=== PATIENT | male | born 1970 | race Caucasian/White ===

== ENCOUNTER 2016-11-21 07:20 | Outpatient (CLI) | payer OTHER | END 2016-11-21 07:21 | disposition home or self-care (01) | DX: Z12.5 Encounter for screening for malignant neoplasm of prostate (principal); I10 Essential (primary) hypertension; I48.0 Paroxysmal atrial fibrillation; R53.83 Other fatigue ==

== ENCOUNTER 2017-03-06 17:34 | Emergency (ER) | payer OTHER ==
--- NOTE | 2017-03-06 18:02 | ED Physician Documentation ---
PD HPI CHEST PAIN - Stated complaint Stated Complaint: CP - Chief complaint Chief Complaint: Cardiac - History obtained from History obtained from: Patient, Family - History of Present Illness Timing - onset: How many hours ago (2) Timing - onset during: Light activity Timing - duration: Hours (2) Timing - details: Constant Pain level max: 6 Pain level now: 2 Quality: Tightness Location: Other (entire chest) Radiation: Other (non-radiating) Improved by: ASA Associated symptoms: No: Shortness of air, Diaphoresis, Nausea, Vomiting, Feeling faint / dizzy, General Weakness, Palpitations, Cough Similar symptoms before: Diagnosis (chest pain, states normal coronary angio 4 years ago at [facility] in [place]. Had new afib at that time.) Recently seen: Not recently seen Review of Systems Ten Systems: 10 systems reviewed and negative Constitutional: denies: Fever, Chills Nose: denies: Rhinorrhea / runny nose, Congestion Cardiac: denies: Palpitations Respiratory: denies: Cough GI: denies: Abdominal Pain, Nausea, Vomiting, Diarrhea Skin: denies: Rash Musculoskeletal: denies: Neck pain, Back pain Neurologic: denies: Focal weakness, Numbness, Headache PD PAST MEDICAL HISTORY - Past Medical History Past Medical History: Yes Cardiovascular: Atrial fibrillation - Past Surgical History Past Surgical History: Yes Cardiovascular: Other - Present Medications Home Medications: Ambulatory Orders Medication Instructions Recorded Confirmed Aspirin 81 mg PO DAILY 10/12/15 03/06/17 Nifedipine 10 mg PO DAILY 10/12/15 03/06/17 Esomeprazole Magnesium [Nexium] 20 mg PO DAILY 03/06/17 03/06/17 Lisinopril 5 mg PO DAILY 03/06/17 03/06/17 - Allergies Allergies/Adverse Reactions: Allergies Allergy/AdvReac Type Severity Reaction Status Date / Time No Known Drug Allergies Allergy Verified 03/06/17 17:43 - Social History Does the pt smoke?: No Smoking Status: Never smoker Does the pt drink ETOH?: Yes Does the pt have substance abuse?: No - Immunizations Immunizations are current?: Yes PD ED PE NORMAL - Vitals Vital signs reviewed: Yes - General General: Alert and oriented X 3, No acute distress, Well developed/nourished - HEENT HEENT: PERRL, Moist mucous membranes - Neck Neck: Supple, no meningeal sign - Cardiac Cardiac: RRR, No murmur, Strong equal pulses - Respiratory Respiratory: No respiratory distress, Clear bilaterally - Abdomen Abdomen: Soft, Non tender, Non distended - Derm Derm: Warm and dry - Extremities Extremities: No edema, No calf tenderness / cord - Neuro Neuro: Alert and oriented X 3 - Psych Psych: Normal mood, Normal affect Results - Vitals Vitals: Vital Signs - 24 hr 03/06/17 03/06/17 03/06/17 17:35 17:54 19:07 Temperature 36.9 C Heart Rate 75 66 Respiratory 17 18 Rate Blood Pressure 144/75 H 137/90 H Blood Pressure 137/99 H [Left] Blood Pressure 144/75 H [Right] O2 Saturation 98 98 03/06/17 03/06/17 20:13 21:34 Temperature Heart Rate 66 56 L Respiratory 18 18 Rate Blood Pressure 141/87 H 126/66 Blood Pressure [Left] Blood Pressure [Right] O2 Saturation 97 97 Oxygen O2 Source Room air - EKG (time done) 1743 Rate: Rate (enter#) (74) Rhythm: NSR [place]: LAD Intervals: Normal MT QRS: Normal Ischemia: ST elevation c/w repol - Labs Labs: Laboratory Tests 03/06/17 03/06/17 03/06/17 17:50 17:50 17:50 WBC 5.5 RBC 4.72 Hgb 15.2 Hct 44.5 MCV 94.3 H MCH 32.1 H MCHC 34.1 RDW 12.5 Plt Count 144 MPV 11.2 Neut # 2.8 Lymph # 2.0 Mcnairy # 0.5 Eos # 0.2 Baso # 0.0 Absolute Nucleated RBC 0.00 Nucleated RBCs 0.0 Sodium 143 Potassium 4.0 Chloride 107 Carbon Dioxide 29 Anion Gap 7.0 BUN 18 Creatinine 0.9 Estimated GFR (MDRD) 91 Glucose 93 Calcium 9.1 Total Bilirubin 0.7 AST 33 ALT 60 Alkaline Phosphatase 66 Troponin I < 0.04 Total Protein 7.4 Albumin 4.6 Globulin 2.8 Albumin/Globulin Ratio 1.6 Lipase 36 03/06/17 20:11 WBC RBC Hgb Hct MCV MCH MCHC RDW Plt Count MPV Neut # Lymph # Mcnairy # Eos # Baso # Absolute Nucleated RBC Nucleated RBCs Sodium Potassium Chloride Carbon Dioxide Anion Gap BUN Creatinine Estimated GFR (MDRD) Glucose Calcium Total Bilirubin AST ALT Alkaline Phosphatase Troponin I < 0.04 Total Protein Albumin Globulin Albumin/Globulin Ratio Lipase - Rads (name of study) cxr Radiology: Prelim report reviewed, EMP read contemporaneously, See rad report ( normal) PD MEDICAL DECISION MAKING - ED course Complexity details: reviewed results, re-evaluated patient, considered differential (No ST elevation MT, no aortic dissection, no PE, no tension pneumothorax, no aortic aneurysm), d/w patient, d/w family ED course: Patient is a 46-year-old gentleman with chest pain for several hours prior to arrival today. No acute findings on EKG. Negative coronary angiogram 4 years ago. No acute troponin elevation. Normal chest x-ray. Heart score is 3. We did discuss observation in the hospital for serial cardiac enzymes, he declines this. A second troponin was ordered without any change. His symptoms have resolved. We will have him follow-up with his doctor for further evaluation and care as an outpatient including a repeat cardiac stress test. He does understand that he has approximately a 2% risk of major adverse cardiac event in the next 6 weeks. Patient and are comfortable with this. Patient and family counseled regarding signs and symptoms for which I believe and urgent re- evaluation would be necessary. Patient with good understanding of and agreement to plan and is comfortable going home at this time This document was made in part using voice recognition software. While efforts are made to proofread this document, sound alike and grammatical errors may occur. Departure - Departure Disposition: 01 Home, Self Care Clinical Impression: Chest pain Qualifiers: Chest pain type: unspecified Qualified Code(s): R07.9 - Chest pain, unspecified Condition: Good Instructions: ED Chest Pain Atypical Unkn Cause Follow-Up: Tiana Plaza PA-C [Primary Care Provider] - Within 3 Days Comments: Return if you worsen. Continue your aspirin daily. You need to follow-up with your doctor for a repeat cardiac stress test. Discharge Date/Time: 03/06/17 22:05
[2017-03-06 18:07] LABS: BASOPHILS % (AUTO) 0.8 %; EOSINOPHILS # (AUTO) 0.2 10^3/uL (0.0-0.7); EOSINOPHILS % (AUTO) 3.6 %; HCT - HEMATOCRIT 44.5 % (42.0-52.0); HGB - HEMOGLOBIN 15.2 g/dL (14.0-18.0); LYMPHOCYTES % (AUTO) 36.4 %; MEAN CORPUSCULAR HEMOGLOBIN 32.1 pg (27.0-31.0); MEAN CORPUSCULAR HGB CONC 34.1 g/dL (32.0-36.0); MEAN CORPUSCULAR VOLUME 94.3 fL (80.0-94.0); MEAN PLATELET VOLUME 11.2 fL (7.4-11.4); MONOCYTES # (AUTO) 0.5 10^3/uL (0.0-1.0); NEUTROPHILS # (AUTO) 2.8 10^3/uL (1.5-6.6); NEUTROPHILS % (AUTO) 50.2 %; RED BLOOD COUNT 4.72 10^6/uL (4.70-6.10); RED CELL DISTRIBUTION WIDTH 12.5 % (12.0-15.0); UNCORRECTED WHITE BLOOD COUNT 5.5 x10^3/uL; WHITE BLOOD COUNT 5.5 x10^3/uL (4.8-10.8)
[2017-03-06 18:12] LABS: ALBUMIN/GLOBULIN RATIO 1.6 (1.0-2.2); BILIRUBIN,TOTAL 0.7 mg/dL (0.2-1.0); CALCIUM 9.1 mg/dL (8.5-10.3); CREATININE 0.9 mg/dL (0.6-1.2); TOTAL PROTEIN 7.4 g/dL (6.7-8.2)
[2017-03-06] MEDS ORDERED: ASPIRIN CHEW 81 MG TABLET PO STA (19:10)
[2017-03-06] MEDS ORDERED: ASPIRIN CHEW 81 MG TABLET ONE (19:11)
--- NOTE | 2017-03-06 19:11 | XRAY Preliminary Report ---
Exam: XR Chest 1 View IMPRESSION: Normal single view chest. [facility] SITE ID: [id number]
--- NOTE | 2017-03-06 19:23 | XRAY Report ---
EXAM: CHEST RADIOGRAPHY EXAM DATE: 03/06/2017 06:05 PM. CLINICAL HISTORY: Chest pain. COMPARISON: 06/02/2013. TECHNIQUE: 1 view. FINDINGS: Lungs/Pleura: No focal opacities evident. No pleural effusion. No pneumothorax. Mediastinum: Within exam limitations, cardiomediastinal contour is normal. Other: None. IMPRESSION: Normal single view chest. [facility] Referring Provider Line: [phone] SITE ID: [id number]
[2017-03-06 21:35] VITALS: BP 126/66
== END 2017-03-06 22:05 | disposition home or self-care (01) ==
LOC: ED 17:34
DX: R07.89 Other chest pain (principal); Z79.82 Long term (current) use of aspirin
CPT/HCPCS: 36415; 71010; 80053; 83690; 84484; 85025; 93005; 93010; 99284; A9270

== ENCOUNTER 2017-05-08 11:35 | Day surgery (SDC) | payer OTHER ==
[2017-05-08] MEDS ORDERED: LACTATED RINGERS 1,000 ML IV ONE (12:00)
[2017-05-08] MEDS ORDERED: fentaNYL 100 MCG/2 ML VIAL IVP ONE (14:10)
[2017-05-08] MEDS ORDERED: MIDAZOLAM 2 MG/2 ML VIAL IVP ONE (14:10)
[2017-05-08] MEDS ORDERED: BENZOCAINE/TETRACAINE/BUTAMBEN SPRAY 56 GM TOP ONE (14:17)
[2017-05-08 15:21] VITALS: BP 118/68
== END 2017-05-08 11:36 | disposition home or self-care (01) ==
LOC: SDS 11:35
PROVIDERS: ATTEND Surgery
PROC: 0DB78ZX Excision of Stomach, Pylorus, Via Natural or Artificial Opening Endoscopic, Diagnostic (ICD-10-PCS; 2017-05-08)
PROC: 0DB48ZX Excision of Esophagogastric Junction, Via Natural or Artificial Opening Endoscopic, Diagnostic (ICD-10-PCS; principal; 2017-05-08 12:45)
DX: K21.9 Gastro-esophageal reflux disease without esophagitis (principal); K44.9 Diaphragmatic hernia without obstruction or gangrene; I10 Essential (primary) hypertension; I48.91 Unspecified atrial fibrillation; G47.33 Obstructive sleep apnea (adult) (pediatric); Z87.891 Personal history of nicotine dependence; E66.3 Overweight; Z79.82 Long term (current) use of aspirin; Z68.30 Body mass index [BMI] 30.0-30.9, adult
CPT/HCPCS: 43239; A9270; J7120; 88305

== ENCOUNTER → 2018-08-14 | Outpatient (CLI) | payer OTHER ==
[2018-08-14 13:00] LABS: BASOPHILS % (AUTO) 0.9 %; EOSINOPHILS # (AUTO) 0.2 10^3/uL (0.0-0.7); EOSINOPHILS % (AUTO) 3.7 %; LYMPHOCYTES # (AUTO) 1.8 10^3/uL (1.5-3.5); LYMPHOCYTES % (AUTO) 33.7 %; MEAN CORPUSCULAR HEMOGLOBIN 33.9 pg (27.0-31.0); MEAN CORPUSCULAR HGB CONC 35.5 g/dL (32.0-36.0); MEAN CORPUSCULAR VOLUME 95.5 fL (80.0-94.0); MEAN PLATELET VOLUME 11.1 fL (7.4-11.4); MONOCYTES # (AUTO) 0.4 10^3/uL (0.0-1.0); MONOCYTES % (AUTO) 8.4 %; NEUTROPHILS # (AUTO) 2.8 10^3/uL (1.5-6.6); NEUTROPHILS % (AUTO) 53.3 %; PLT - PLATELET COUNT 159 10^3/uL (130-450); RED BLOOD COUNT 4.73 10^6/uL (4.70-6.10); RED CELL DISTRIBUTION WIDTH 12.4 % (12.0-15.0); WHITE BLOOD COUNT 5.3 x10^3/uL (4.8-10.8)
[2018-08-14 13:10] LABS: ALBUMIN 4.3 g/dL (3.2-5.5); ALBUMIN/GLOBULIN RATIO 1.6 (1.0-2.2); ALKALINE PHOSPHATASE 75 IU/L (42-121); ALT ALANINE AMINOTRANSFERASE 69 IU/L (10-60); AST ASPARTATE AMINOTRANSFERASE 35 IU/L (10-42); BILIRUBIN,TOTAL 1.5 mg/dL (0.2-1.0); BUN - BLOOD UREA NITROGEN 18 mg/dL (6-20); CARBON DIOXIDE - CO2 25 mmol/L (21-32); CHLORIDE 104 mmol/L (101-111); CHOL/HDL RATIO 5.2 (<5.0); CHOLESTEROL 172 mg/dL; CREATININE 0.8 mg/dL (0.6-1.2); GFR - MDRD 104 (>89); GLUCOSE 96 mg/dL (70-100); HDL CHOLESTEROL 33 mg/dL; LDL CHOLESTEROL,CALCULATED 95 mg/dL; LDL/HDL RATIO 2.9 (<3.6); SODIUM 138 mmol/L (135-145); VLDL CHOLESTEROL 44 mg/dL
[2018-08-14 14:12] LABS: HEMOGLOBIN A1C 0.58 g/dL; HEMOGLOBIN A1C % 5.3 % (4.6-6.2)
== END ==
LOC: LAB.WCP 07:22
PROVIDERS: ATTEND Physician Assistant
DX: Z00.00 Encounter for general adult medical examination without abnormal findings (principal); Z79.899 Other long term (current) drug therapy
CPT/HCPCS: 36415; 80053; 80061; 83036; 83721; 84443; 85025

== ENCOUNTER 2020-03-18 06:07 | Emergency (ER) | payer OTHER ==
[2020-03-18 06:14] VITALS: BP 127/94
[2020-03-18] MEDS ORDERED: PROPARACAINE 0.5% OPHTH DROPS 15 ML LEFTEYE STA (06:40)
--- NOTE | 2020-03-18 06:46 | ED Physician Documentation ---
PD HPI OPHTHO - Stated complaint Stated Complaint: L EYE PX - Chief complaint Chief Complaint: Heent - History obtained from History obtained from: Patient - History of Present Illness Timing - onset: Enter time (02:00), Today Timing - details: Abrupt onset Location: Left Quality / character: Other (FB sensation) Associated symptoms: FB sensation. No: Redness, Swelling, Tearing, Discharge, M atting, Photophobia, Double vision, Decreased vision, Loss of vision, Headache Contributing factors: Irrigated [employer], Wears glasses. 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 no injury and does not recall incident of FB getting into the eye. Review of Systems Eyes: reports: Irritation, Other (left eye FB sensation). denies: Loss of vision, Decreased vision, Photophobia, Discharge PD PAST MEDICAL HISTORY - Past Medical History Past Medical History: Yes Cardiovascular: Hypertension, Atrial fibrillation Respiratory: None, Sleep apnea, CPAP use, Other Neuro: None Endocrine/Autoimmune: None GI: GERD : None HEENT: None Psych: None Musculoskeletal: None Derm: None - Past Surgical History Past Surgical History: Yes Cardiovascular: Other - Present Medications Home Medications: Ambulatory Orders Medication Instructions Recorded Confirmed Aspirin 81 mg PO DAILY 10/12/15 05/07/17 NIFEdipine [Nifedipine] 10 mg PO DAILY 10/12/15 05/07/17 Esomeprazole Magnesium [Nexium] 20 mg PO DAILY 03/06/17 05/07/17 lisinopriL [Lisinopril] 10 mg PO DAILY 03/06/17 05/07/17 - Allergies Allergies/Adverse Reactions: Allergies Allergy/AdvReac Type Severity Reaction Status Date / Time No Known Drug Allergies Allergy Verified 03/18/20 06:14 - Social History Does the pt smoke?: No Smoking Status: Never smoker Does the pt drink ETOH?: Yes Does the pt have substance abuse?: No - Immunizations Immunizations are current?: Yes - POLST Patient has POLST: No PD ED PE NORMAL - Vitals Vital signs reviewed: Yes - General General: Alert and oriented X 3, No acute distress, Well developed/nourished - HEENT HEENT: SRINI DURAN PD ED PE EXPANDED - HEENT HEENT Visual: 1 - deformity (small, shallow fluorescein uptake) - Eyes Eyes: Normal eyelids, No eyelid FB (everted), Fluorescein uptake, Anterior chambers clear. No: Eyelid swelling, Eyelid erythema, Exudate, Conj/sclera FB, Subconj hemorrhage, Corneal FB, Corneal abrasion, Corneal ulcer Results - Vitals Vitals: Vital Signs - 24 hr 03/18/20 06:12 Temperature 36.5 C Heart Rate 76 Respiratory 17 Rate Blood Pressure 127/94 H O2 Saturation 97 Oxygen O2 Source Room air PD MEDICAL DECISION MAKING - ED course Complexity details: considered differential, d/w patient Departure - Departure Disposition: 01 Home, Self Care Clinical Impression: Corneal abrasion Condition: Good Instructions: ED Eye Injury Corneal Abrasion Follow-Up: Cordelia Doe PA [Primary Care Provider] - Comments: Use the antibiotic drops as follows: 1 drop in left eye 4 times per day for 5 days Discharge Date/Time: 03/18/20 07:32
[2020-03-18] MEDS ORDERED: POLYMYXIN B/TRIMETH OPHTH DROPS LEFTEYE STA (07:25)
== END 2020-03-18 07:32 | disposition home or self-care (01) ==
LOC: ED 06:07
DX: S05.02XA Injury of conjunctiva and corneal abrasion without foreign body, left eye, initial encounter (principal); X58.XXXA Exposure to other specified factors, initial encounter; I10 Essential (primary) hypertension
CPT/HCPCS: 99282; 99283; A9270; J3490

== ENCOUNTER 2020-10-10 07:45 | Outpatient (CLI) | payer OTHER ==
[2020-10-10 12:48] LABS: BASOPHILS % (AUTO) 0.9 %; EOSINOPHILS # (AUTO) 0.2 10^3/uL (0.0-0.7); EOSINOPHILS % (AUTO) 3.5 %; HGB - HEMOGLOBIN 16.3 g/dL (14.0-18.0); LYMPHOCYTES # (AUTO) 1.4 10^3/uL (1.5-3.5); LYMPHOCYTES % (AUTO) 32.9 %; MEAN CORPUSCULAR HEMOGLOBIN 33.1 pg (27.0-31.0); MEAN CORPUSCULAR HGB CONC 33.7 g/dL (32.0-36.0); MEAN CORPUSCULAR VOLUME 98.2 fL (80.0-94.0); MONOCYTES # (AUTO) 0.5 10^3/uL (0.0-1.0); MONOCYTES % (AUTO) 10.4 %; NEUTROPHILS # (AUTO) 2.2 10^3/uL (1.5-6.6); NEUTROPHILS % (AUTO) 51.6 %; PLT - PLATELET COUNT 160 10^3/uL (130-450); RED BLOOD COUNT 4.92 10^6/uL (4.70-6.10); RED CELL DISTRIBUTION WIDTH 11.7 % (12.0-15.0); WHITE BLOOD COUNT 4.3 x10^3/uL (4.8-10.8)
[2020-10-10 13:56] LABS: ALBUMIN 4.2 g/dL (3.2-5.5); ALBUMIN/GLOBULIN RATIO 1.3 (1.0-2.2); ALKALINE PHOSPHATASE 67 IU/L (42-121); ALT ALANINE AMINOTRANSFERASE 63 IU/L (10-60); AST ASPARTATE AMINOTRANSFERASE 32 IU/L (10-42); BILIRUBIN,TOTAL 0.9 mg/dL (0.2-1.0); BUN - BLOOD UREA NITROGEN 18 mg/dL (6-20); CALCIUM 9.7 mg/dL (8.5-10.3); CARBON DIOXIDE - CO2 26 mmol/L (21-32); CHLORIDE 105 mmol/L (101-111); CHOL/HDL RATIO 5.4 (<5.0); CHOLESTEROL 204 mg/dL; CREATININE 0.9 mg/dL (0.6-1.2); GLUCOSE 110 mg/dL (70-100); HDL CHOLESTEROL 38 mg/dL; LDL CHOLESTEROL,CALCULATED 114 mg/dL; SODIUM 141 mmol/L (135-145); TOTAL PROTEIN 7.5 g/dL (6.7-8.2); VLDL CHOLESTEROL 52 mg/dL
[2020-10-10 14:08] LABS: HEMOGLOBIN A1c% 5.2 % (4.27-6.07)
== END 2020-10-10 23:59 | disposition home or self-care (01) ==
LOC: LAB.WCP 07:45
PROVIDERS: ATTEND Physician Assistant
DX: Z00.00 Encounter for general adult medical examination without abnormal findings (principal); Z79.899 Other long term (current) drug therapy
CPT/HCPCS: 36415; 80053; 80061; 83036; 83721; 84443; 85025

== ENCOUNTER 2021-12-07 08:45 | Outpatient (CLI) | payer OTHER ==
[2021-12-07 13:27] LABS: ALBUMIN 4.3 g/dL (3.2-5.5); ALBUMIN/GLOBULIN RATIO 1.4 (1.0-2.2); ALKALINE PHOSPHATASE 55 IU/L (42-121); ALT ALANINE AMINOTRANSFERASE 59 IU/L (10-60); AST ASPARTATE AMINOTRANSFERASE 48 IU/L (10-42); BILIRUBIN,TOTAL 1.4 mg/dL (0.2-1.0); BUN - BLOOD UREA NITROGEN 17 mg/dL (6-20); CALCIUM 8.6 mg/dL (8.5-10.3); CARBON DIOXIDE - CO2 28 mmol/L (21-32); CHLORIDE 104 mmol/L (101-111); CHOL/HDL RATIO 2.7 (<5.0); CHOLESTEROL 126 mg/dL; CREATININE 0.9 mg/dL (0.6-1.2); GFR - MDRD 89 (>89); GLUCOSE 104 mg/dL (70-100); HDL CHOLESTEROL 46 mg/dL; LDL CHOLESTEROL,CALCULATED 64 mg/dL; LDL/HDL RATIO 1.4 (<3.6); POTASSIUM 4.5 mmol/L (3.5-5.0); SODIUM 138 mmol/L (135-145); TOTAL PROTEIN 7.4 g/dL (6.7-8.2); TRIGLYCERIDES 81 mg/dL; VLDL CHOLESTEROL 16 mg/dL
== END 2021-12-07 08:46 | disposition home or self-care (01) ==
LOC: LAB.N 08:45
PROVIDERS: ATTEND Physician Assistant Medical
DX: Z12.5 Encounter for screening for malignant neoplasm of prostate (principal); I25.10 Atherosclerotic heart disease of native coronary artery without angina pectoris
CPT/HCPCS: 36415; 80053; 80061; 83721; 84153

== ENCOUNTER 2022-02-08 08:02 | Outpatient (CLI) | payer BC ==
[2022-02-08 12:45] LABS: ALBUMIN 4.1 g/dL (3.2-5.5); BILIRUBIN,DIRECT 0.2 mg/dL (0.1-0.5); BILIRUBIN,TOTAL 1.2 mg/dL (0.2-1.0); TOTAL PROTEIN 7.6 g/dL (6.7-8.2)
[2022-02-09 09:27] LABS: HEPATITIS B CORE AB TOTAL NON-REACTIVE (NON-REACTIVE); HEPATITIS B SURFACE ANTIGEN NON-REACTIVE (NON-REACTIVE); HEPATITIS C ANTIBODY NON-REACTIVE (NON-REACTIVE)
[2022-02-12 08:36] LABS: HCV RNA QNT <1.18 NOT DETECTED Log IU/mL; HCV RNA QUANT RT PCR <15 NOT DETECTED IU/mL
== END 2022-02-08 08:03 | disposition home or self-care (01) ==
LOC: LAB.N 08:02
PROVIDERS: ATTEND Physician Assistant Medical
DX: R74.8 Abnormal levels of other serum enzymes (principal)
CPT/HCPCS: 36415; 80076; 86317; 86704; 86709; 86803; 87340; 87522

== ENCOUNTER 2022-02-21 07:54 | Day surgery (SDC) | payer BC ==
[2022-02-21] MEDS ORDERED: LACTATED RINGERS 1,000 ML IV ONE ×2 (08:01→09:54)
--- NOTE | 2022-02-21 08:37 | ANESTHESIA ---
Pre-Anesthesia VS, & Labs - Diagnosis screening - Procedure colonoscopy Vital Signs: Temp Pulse Resp BP Pulse Ox 36.4 C L 75 16 127/93 H 96 02/21/22 08:01 02/21/22 08:01 02/21/22 08:01 02/21/22 08:01 02/21/22 08:01 Height: 6 ft 1 in Weight (kg): 98.7 kg Body Mass Index: 28.7 BMI Classification: Overweight - NPO >8 hours - Lab Results Lab results reviewed: Yes Home Medications and Allergies Home Medications: Ambulatory Orders Lovastatin 10 mg PO DAILY 02/20/22 Aspirin 81 mg PO DAILY 10/12/15 NIFEdipine [Nifedipine] 10 mg PO DAILY 10/12/15 Esomeprazole Magnesium [Nexium] 20 mg PO DAILY 03/06/17 lisinopriL [Lisinopril] 10 mg PO DAILY 03/06/17 Lovastatin 10 mg PO DAILY 02/20/22 Allergies/Adverse Reactions: Allergies Allergy/AdvReac Type Severity Reaction Status Date / Time No Known Drug Allergies Allergy Verified 02/20/22 12:22 Anes History & Medical History - Anesthetic History Anesthesia Complications: reports: No previous complications Family history of Anesthesia Complications: Denies Family history of Malignant Hyperthermia: Denies - Medical History Cardiovascular: reports: Hypertension, High cholesterol, Atrial fibrillation Pulmonary: reports: None Gastrointestinal: reports: None Urinary: reports: None Neuro: reports: None Musculoskeletal: reports: None Endocrine/Autoimmune: reports: None Blood Disorders: reports: None Skin: reports: None Smoking Status: Never smoker - Surgical History Cardiothoracic: reports: Other Exam General: Alert, Oriented x3, Cooperative, No acute distress Dental: WNL Mouth Openin Fingerbreadth Neck Mobility: Normal Mallampati classification: II Plan Anesthesia Type: General, Total IV Consent for Procedure(s) Verified and Reviewed: Yes Code Status: Attempt Resuscitation ASA classification: 3-Severe systemic disease Is this case an emergency?: No
[2022-02-21] MEDS ORDERED: PROPOFOL 500 MG/50 ML 500 MG/50 ML VIAL ONE (09:16)
[2022-02-21 09:57] VITALS: BP 94/74
--- NOTE | 2022-02-21 10:42 | ANESTHESIA POST OP EVALUATION ---
Anesthesia Post Eval - Post Anesthesia Eval Vitals: Last Vital Signs Temp 37.2 C 02/21/22 09:45 Pulse 96 02/21/22 09:56 Resp 16 02/21/22 09:56 BP 94/74 02/21/22 09:56 Pulse Ox 96 02/21/22 09:56 CV Function Including HR & BP: Stable Pain Control: Satisfactory Nausea & Vomiting: Negative Mental Status: Baseline Respiratory Status: Airway Patent Hydration Status: Satisfactory Anesthesia Complications: None
== END 2022-02-21 07:55 | disposition home or self-care (01) ==
LOC: SDS 07:54
PROVIDERS: ATTEND Surgery
DX: Z12.11 Encounter for screening for malignant neoplasm of colon (principal); K57.30 Diverticulosis of large intestine without perforation or abscess without bleeding; G47.33 Obstructive sleep apnea (adult) (pediatric); I10 Essential (primary) hypertension; Z87.891 Personal history of nicotine dependence
CPT/HCPCS: 45378; J7120

== ENCOUNTER 2022-08-31 12:05 | Outpatient (CLI) | payer BC ==
[2022-08-31 19:01] LABS: ALBUMIN 4.3 g/dL (3.2-5.5); ALBUMIN/GLOBULIN RATIO 1.3 (1.0-2.2); ALKALINE PHOSPHATASE 64 IU/L (42-121); ALT ALANINE AMINOTRANSFERASE 77 IU/L (10-60); AST ASPARTATE AMINOTRANSFERASE 44 IU/L (10-42); BILIRUBIN,TOTAL 1.2 mg/dL (0.2-1.0); BUN - BLOOD UREA NITROGEN 15 mg/dL (6-20); CALCIUM 9.2 mg/dL (8.5-10.3); CARBON DIOXIDE - CO2 27 mmol/L (21-32); CHLORIDE 103 mmol/L (101-111); CHOL/HDL RATIO 3.6 (<5.0); CHOLESTEROL 147 mg/dL; CREATININE 0.9 mg/dL (0.6-1.2); GFR - MDRD 89 (>89); GLUCOSE 99 mg/dL (70-100); HDL CHOLESTEROL 41 mg/dL; LDL CHOLESTEROL,CALCULATED 48 mg/dL; LDL/HDL RATIO 1.2 (<3.6); SODIUM 139 mmol/L (135-145); TOTAL PROTEIN 7.5 g/dL (6.7-8.2); TRIGLYCERIDES 288 mg/dL; VLDL CHOLESTEROL 58 mg/dL
== END 2022-08-31 12:06 | disposition home or self-care (01) ==
LOC: LAB.N 12:05
PROVIDERS: ATTEND Physician Assistant Medical
DX: I25.10 Atherosclerotic heart disease of native coronary artery without angina pectoris (principal)
CPT/HCPCS: 36415; 80053; 80061; 83721

== ENCOUNTER 2022-09-10 07:57 | Outpatient (CLI) | payer BC ==
--- NOTE | 2022-09-10 15:56 | Ultrasound Report ---
PROCEDURE: Abdomen Limited INDICATIONS: ELEVATED LIVER ENZYMES TECHNIQUE: Real-time focused scanning was performed of the abdomen, with image documentation. COMPARISON: None. FINDINGS: The liver is upper limits in size at 17 cm. Liver is diffusely increased in echogenicity with posteri or acoustic attenuation. A 7 mm adherent nonshadowing lesion is seen in the body of the gallbladder, most compatible with a po lyp. No gallstones or gallbladder wall thickening. No pericholecystic fluid. Sonographic Tapia sign is negative. There is no intrahepatic or extra hepatic biliary duct dilatation. Common bile measures [address] The included portions of the pancreas are unremarkable. The right kidney is normal in size without hy dronephrosis. IMPRESSION: 1.Diffusely increased hepatic echogenicity is nonspecific, but most commonly encountered in the setti ng of hepatic steatosis. However, other causes of hepatocellular disease are not excluded. Recommend clinical correlation. 2.Nonspecific 7 mm gallbladder polyp is most likely benign. Recommend sonographic follow-up in one ye ar. Reviewed by: Man Funes MD on 09/10/2022 3:55 PM PST Approved by: Man Funes MD on 09/10/2022 3:55 PM PST Station ID: [id number]
== END 2022-09-10 07:58 | disposition home or self-care (01) ==
LOC: DI 07:57
PROVIDERS: ATTEND Physician Assistant Medical
DX: K82.4 Cholesterolosis of gallbladder (principal); R74.8 Abnormal levels of other serum enzymes

== ENCOUNTER 2022-11-29 10:59 | Outpatient (CLI) | payer BC ==
[2022-11-29 18:21] LABS: ALBUMIN 4.1 g/dL (3.2-5.5); ALBUMIN/GLOBULIN RATIO 1.2 (1.0-2.2); BILIRUBIN,TOTAL 1.2 mg/dL (0.2-1.0); CALCIUM 9.4 mg/dL (8.5-10.3); CREATININE 0.9 mg/dL (0.6-1.2); POTASSIUM 4.3 mmol/L (3.5-5.0); TOTAL PROTEIN 7.5 g/dL (6.7-8.2)
== END 2022-11-29 11:00 | disposition home or self-care (01) ==
LOC: LAB.N 10:59
PROVIDERS: ATTEND Physician Assistant Medical
DX: R74.8 Abnormal levels of other serum enzymes (principal)
CPT/HCPCS: 36415; 80053

== ENCOUNTER 2023-03-18 06:42 | Outpatient (CLI) | payer BC ==
--- NOTE | 2023-03-18 16:33 | Ultrasound Report ---
PROCEDURE: Abdomen Limited INDICATIONS: GALLBLADDER POLYPS TECHNIQUE: Real-time focused scanning was performed of the abdomen, with image documentation. COMPARISONS: None. FINDINGS: Liver: Liver is enlarged measuring 17.6 cm with steatosis. Gallbladder: Nonmobile foci of increased echogenicity are present within the gallbladder the largest measuring 7 mm compared to 7.2 mm. Wall thickness is normal measuring 1.9 mm. Biliary ducts: Intrahepatic bile ducts are non-dilated. Extrahepatic bile duct caliber measures 4.2 mm. Normal is 6-7 mm or less in diameter, or 10 mm or less post-cholecystectomy. Pancreas: Visualized portions of the pancreas are sonographically normal. Right kidney: Normal in size and echotexture. Right kidney measures 13.2 cm long. No hydronephrosis or nephrolithiasis. No solid masses. No complex renal cystic lesions which require follow-up. IMPRESSION: Stable appearance of gallbladder polyps. Reviewed by: Giuliana Loco MD on 03/18/2023 4:32 PM PDT Approved by: Giuliana Loco MD on 03/18/2023 4:32 PM PDT Station ID: [id number]
== END 2023-03-18 06:43 | disposition home or self-care (01) ==
LOC: DI 06:42
PROVIDERS: ATTEND Surgery
DX: K82.4 Cholesterolosis of gallbladder (principal)

== ENCOUNTER 2023-11-03 07:30 | Outpatient (CLI) | payer BC ==
[2023-11-03 12:01] LABS: BASOPHILS % (AUTO) 0.5 %; EOSINOPHILS # (AUTO) 0.1 10^3/uL (0.0-0.7); EOSINOPHILS % (AUTO) 2.2 %; HCT - HEMATOCRIT 48.5 % (42.0-52.0); HGB - HEMOGLOBIN 16.2 g/dL (14.0-18.0); LYMPHOCYTES # (AUTO) 1.5 10^3/uL (1.5-3.5); LYMPHOCYTES % (AUTO) 25.1 %; MEAN CORPUSCULAR HEMOGLOBIN 32.5 pg (27.0-31.0); MEAN CORPUSCULAR HGB CONC 33.4 g/dL (32.0-36.0); MEAN CORPUSCULAR VOLUME 97.2 fL (80.0-94.0); MEAN PLATELET VOLUME 11.2 fL (7.4-11.4); MONOCYTES # (AUTO) 0.5 10^3/uL (0.0-1.0); MONOCYTES % (AUTO) 8.5 %; NEUTROPHILS # (AUTO) 3.8 10^3/uL (1.5-6.6); NEUTROPHILS % (AUTO) 63.2 %; PLT - PLATELET COUNT 212 10^3/uL (130-450); RED BLOOD COUNT 4.99 10^6/uL (4.70-6.10); RED CELL DISTRIBUTION WIDTH 11.3 % (12.0-15.0)
[2023-11-03 13:14] LABS: ALBUMIN 4.5 g/dL (3.2-5.5); ALBUMIN/GLOBULIN RATIO 1.6 (1.0-2.2); ALKALINE PHOSPHATASE 73 IU/L (42-121); ALT ALANINE AMINOTRANSFERASE 58 IU/L (10-60); AST ASPARTATE AMINOTRANSFERASE 31 IU/L (10-42); BILIRUBIN,TOTAL 0.7 mg/dL (0.2-1.0); BUN - BLOOD UREA NITROGEN 13 mg/dL (6-20); CALCIUM 9.9 mg/dL (8.5-10.3); CARBON DIOXIDE - CO2 31 mmol/L (21-32); CHLORIDE 103 mmol/L (101-111); CHOL/HDL RATIO 3.5 (<5.0); CHOLESTEROL 133 mg/dL; CREATININE 0.8 mg/dL (0.6-1.3); GFR - MDRD 102 (>89); GLUCOSE 108 mg/dL (74-104); HDL CHOLESTEROL 38 mg/dL; LDL CHOLESTEROL,CALCULATED 63 mg/dL; LDL/HDL RATIO 1.7 (<3.6); POTASSIUM 4.3 mmol/L (3.5-4.5); SODIUM 141 mmol/L (135-145); TOTAL PROTEIN 7.4 g/dL (6.4-8.9); TRIGLYCERIDES 160 mg/dL (48-352); VLDL CHOLESTEROL 32 mg/dL
== END 2023-11-03 07:45 | disposition home or self-care (01) ==
LOC: LAB.N 07:30
PROVIDERS: ATTEND Family Medicine
DX: Z00.00 Encounter for general adult medical examination without abnormal findings (principal); Z12.5 Encounter for screening for malignant neoplasm of prostate; M10.9 Gout, unspecified
CPT/HCPCS: 36415; 80053; 80061; 83721; 84153; 84443; 84550; 85025; 85651